=== PATIENT | female | born 1975 | race African-American/Black ===

== ENCOUNTER 2021-09-16 14:16 | Emergency (ER) | payer MEDICAID ==
[~2021-09-16] VITALS: Ht 180.3 cm; Wt 152.7 kg
[2021-09-16 14:30] VITALS: BP 127/65
[2021-09-16] MEDS ORDERED: FLUT1BLS3 (14:34)
[2021-09-16] MEDS ORDERED: ALBU8HFA IH (14:34)
[2021-09-16] MEDS ORDERED: PRED-554 PO (16:07)
== END 2021-09-16 16:25 | disposition home or self-care (01) ==
LOC: EMS 14:16
DX: J40 Bronchitis, not specified as acute or chronic (principal); Z88.8 Allergy status to other drugs, medicaments and biological substances; Z87.09 Personal history of other diseases of the respiratory system
CPT/HCPCS: 99283; Z7502

== ENCOUNTER 2021-12-09 12:44 | Emergency (ER) | payer SELFPAY ==
[~2021-12-09] VITALS: Ht 180.3 cm; Wt 150.0 kg
[~2021-12-09 12:44] MED LIST: ALBU8HFA IH; FLUT1BLS3; PRED-554 PO
[2021-12-09 12:52] VITALS: BP 124/64
== END 2021-12-09 13:43 | disposition home or self-care (01) ==
LOC: EMS 12:45
DX: R05.9 Cough, unspecified (principal); J42 Unspecified chronic bronchitis; Z88.8 Allergy status to other drugs, medicaments and biological substances; Z79.899 Other long term (current) drug therapy
CPT/HCPCS: 99281; Z7502

== ENCOUNTER 2022-09-27 14:08 | Emergency (ER) | payer SELFPAY ==
[~2022-09-27] VITALS: Ht 180.3 cm; Wt 65.9 kg
[~2022-09-27 14:08] MED LIST changes: +ALBU18HF12 IH; -ALBU8HFA IH
[2022-09-27 14:10] VITALS: BP 158/62; PULSE 61; RESP 16; TEMP 98.1
== END 2022-09-27 17:01 | disposition left against medical advice (07) ==
LOC: EMS 15:23
DX: R05.9 Cough, unspecified (principal); Z53.21 Procedure and treatment not carried out due to patient leaving prior to being seen by health care provider
CPT/HCPCS: 99281; Z7502

== ENCOUNTER 2022-10-08 14:10 | Emergency (ER) | payer SELFPAY ==
[~2022-10-08] VITALS: Ht 180.3 cm; Wt 140.9 kg
[~2022-10-08 14:10] MED LIST changes: -PRED-554 PO
[2022-10-08 14:15] VITALS: BP 134/53; PULSE 68; RESP 16; TEMP 98.3
== END 2022-10-08 16:33 | disposition left against medical advice (07) ==
LOC: EMS 14:10
DX: R05.9 Cough, unspecified (principal); Z53.21 Procedure and treatment not carried out due to patient leaving prior to being seen by health care provider
CPT/HCPCS: 99281; Z7502

== ENCOUNTER 2022-10-18 10:51 | Emergency (ER) | payer MEDICAID ==
[~2022-10-18] VITALS: Ht 180.3 cm; Wt 145.2 kg
[~2022-10-18 10:51] MED LIST changes: -FLUT1BLS3; +FLUT1BLS3 IH
[2022-10-18 11:06] VITALS: TEMP 98.2
[2022-10-18] MEDS ORDERED: PROM473S4 PO ×4 (11:43→14:45)
[2022-10-18] MEDS ORDERED: PRED-554 PO ×4 (11:43→14:45)
[2022-10-18 12:15] VITALS: BP 119/72; PULSE 65; RESP 16
== END 2022-10-18 12:30 | disposition home or self-care (01) ==
LOC: EMS 10:52
DX: J20.9 Acute bronchitis, unspecified (principal); J45.909 Unspecified asthma, uncomplicated; Z87.891 Personal history of nicotine dependence; Z98.890 Other specified postprocedural states; Z88.8 Allergy status to other drugs, medicaments and biological substances
CPT/HCPCS: 99283; Z7502